=== PATIENT | female | born 2000 | race Hispanic/Latino ===

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

== ENCOUNTER 2020-07-08 06:18 | Emergency (ER) | payer OTHER ==
[~2020-07-08] VITALS: Ht 167.6 cm; Wt 138.8 kg
[~2020-07-08 06:18] MED LIST: IBUPROFEN400 MG PO
[2020-07-08] MEDS ORDERED: IBUPROFEN 600 MG TAB PO STA (06:34)
[2020-07-08] MEDS ORDERED: ACETAMINOPHEN 325 MG TAB PO ONE (06:45)
[2020-07-08] MEDS ORDERED: ACETAMINOPHEN 325 MG TAB ONE (06:49)
[2020-07-08] MEDS ORDERED: IBUPROFEN 600 MG TAB ONE (06:49)
[2020-07-08 09:15] VITALS: BP 111/90
== END 2020-07-08 09:18 | disposition home or self-care (01) ==
LOC: ER 06:46
DX: U07.1 COVID-19 (principal); R50.9 Fever, unspecified; R06.02 Shortness of breath
CPT/HCPCS: 71045; 99283; U0002